=== PATIENT | male | born 1965 | race African-American/Black ===

== ENCOUNTER 2024-07-27 14:06 | Inpatient (IN) | payer MEDICARE, OTHER ==
[2024-07-27] MEDS ORDERED: Nitroglycerin 0.4 MG TAB (25 Tab Bottle) SL PRN (15:22)
[2024-07-27] MEDS ORDERED: Ipratropium/Albuterol 3 ML NEB NEB PRN (15:24)
[2024-07-27] MEDS ORDERED: Acetaminophen 650 MG/20.3 ML UDCUP PO PRN (15:24)
[2024-07-27] MEDS ORDERED: Electrolyte Replacement Protocol 1 EACH IVPB PRN (15:24)
[2024-07-27] MEDS ORDERED: Nicotine 14 MG PATCH TD PRN (15:29)
[2024-07-27 15:40] LABS: Actual Bicarbonate (HCO3a) 30.7 mEq/L (22-28); Base Excess (BEa) 0.4 mEq/L (-2.0 to +3.0); Calcium, Ionized (arterial) 1.19 mmol/L (1.12-1.30); Hematocrit-ABG 49 % (42.0-52.0); Hemoglobin (Hb) 16.8 g/dL (14.0-18.0); Potassium - ABG Lab 4.42 mmol/L (3.70-5.30); pH, Arterial 7.233 (7.35-7.45)
[2024-07-27 15:43] VITALS: BMI 44.9
[2024-07-27 15:44] LABS: CO2 Tension 74.4 mmHg (35.0-45.0); Puncture Site Right Radial artery
[2024-07-27] MEDS: Nitroglycerin 2% Ointment 1 INCH/1 GM Packet TOP SCH (15:54)
[2024-07-27 16:25] LABS: Troponin I 0.021 ng/mL (< 0.028)
[2024-07-27] MEDS: methylPREDNISolone Sod Succ 40 MG VIAL IVP SCH (17:49)
[2024-07-27] MEDS: Aspirin Chewable 81 MG TAB PO SCH (17:49)
[2024-07-27] MEDS: Ipratropium/Albuterol 3 ML NEB NEB SCH (18:15)
[2024-07-27] MEDS: Multivit, Therapeutic 1 TAB PO SCH (20:54)
[2024-07-27] MEDS: Famotidine 20 MG TAB PO SCH (20:54)
[2024-07-28] MEDS: Furosemide 40 MG (4 mL) VIAL SLOW IVP SCH ×2 (02:22→05:22)
[2024-07-28] MEDS: Furosemide 40 MG (4 mL) VIAL ONE (02:23)
[2024-07-28 04:10] LABS: #Basophils Less than 0.03 10x3/uL (0.0-0.2); #Eosinophils Less than 0.03 10x3/uL (0.0-0.7); %Lymphocytes 10.7 % (21.0-51.0); %Monocytes 4.1 % (0.0-10.0); %Neutrophils 84.7 % (42.0-75.0); Hematocrit 54.4 % (42.0-52.0); Mean Corpuscular HGB CONC 29.4 g/dL (32.0-36.0); Mean Corpuscular Hemoglobin 30.7 pg (27.0-31.0); Mean Corpuscular Volume 104.2 fL (78.0-98.0); Mean Platelet Volume 12.4 fL (7.4-10.4); Platelet Count 162 10x3/uL (130-400); RBC Distribution Width 13.6 % (11.5-14.5); Red Blood Cell (RBC) Count 5.22 mill/uL (4.70-6.10)
[2024-07-28 04:23] LABS: Hemoglobin A1c 5.7 % (4.0-6.0)
[2024-07-28 04:37] LABS: ALT (SGPT) 18 U/L (8-55); AST (SGOT) 14 U/L (5-34); Albumin 2.9 g/dL (3.4-4.8); Alkaline Phosphatase 73 U/L (40-110); Anion Gap 13 mmol/L (10-20); BUN (Urea Nitrogen) 19 mg/dL (8.4-25.7); Bilirubin, Total 0.6 mg/dL (0.2-1.2); Calc. Creatinine Clearance 109 mL/min (70-130); Calcium 8.7 mg/dL (7.8-10.44); Carbon Dioxide 32 mmol/L (23-31); Chloride 106 mmol/L (98-107); Estimated GFR 62; Globulin 4.6 g/dL (2.4-3.5); Glucose 160 mg/dL (80-115); Magnesium 2.2 mg/dL (1.6-2.6); Potassium 5.3 mmol/L (3.5-5.1); Protein, Total 7.5 g/dL (5.8-8.1); Sodium 146 mmol/L (136-145)
[2024-07-28] MEDS: Aspirin Chewable 81 MG TAB PO SCH (08:58)
[2024-07-28] MEDS: cefTRIAXone\\ROCEPHIN 2 GM in Sodium Chloride 0.9% 100 ML IVPB SCH (08:59)
[2024-07-28] MEDS: Enoxaparin 40 MG (0.4 mL) SYRINGE SC SCH (08:59)
[2024-07-28] MEDS: Azithromycin 500 MG in Sodium Chloride 0.9% 250 ML 250 ML IVPB SCH (09:01)
[2024-07-28 11:35] LABS: Actual Bicarbonate (HCO3a) 35.1 mEq/L (22-28); Base Excess (BEa) 5.2 mEq/L (-2.0 to +3.0); Calcium, Ionized (arterial) 1.19 mmol/L (1.12-1.30); Carboxyhemoglobin (COHb) 1.2 gm% (0.0-3.0); Hematocrit-ABG 48 % (42.0-52.0); Hemoglobin (Hb) 16.3 g/dL (14.0-18.0); Potassium - ABG Lab 5.05 mmol/L (3.70-5.30); pH, Arterial 7.285 (7.35-7.45)
[2024-07-28 11:37] LABS: ALV-art Gradient 243.425 mmHg (0-20); CO2 Tension 75.5 mmHg (35.0-45.0); Puncture Site Right Radial artery
[2024-07-28 14:49] LABS: Anion Gap 13 mmol/L (10-20); BUN (Urea Nitrogen) 18 mg/dL (8.4-25.7); Calc. Creatinine Clearance 115 mL/min (70-130); Calcium 8.6 mg/dL (7.8-10.44); Carbon Dioxide 36 mmol/L (23-31); Chloride 103 mmol/L (98-107); Estimated GFR 67; Glucose 126 mg/dL (80-115); Potassium 5.6 mmol/L (3.5-5.1); Sodium 146 mmol/L (136-145)
[2024-07-29] MEDS: Albumin 25% 25 GM (100 mL) BOT IVPB SCH (00:05)
[2024-07-29 05:28] LABS: #Basophils Less than 0.03 10x3/uL (0.0-0.2); #Eosinophils Less than 0.03 10x3/uL (0.0-0.7); %Lymphocytes 6.6 % (21.0-51.0); %Neutrophils 89.1 % (42.0-75.0); Hematocrit 49.1 % (42.0-52.0); Hemoglobin 14.9 g/dL (14.0-18.0); Mean Corpuscular HGB CONC 30.3 g/dL (32.0-36.0); Mean Corpuscular Hemoglobin 31.1 pg (27.0-31.0); Mean Corpuscular Volume 102.5 fL (78.0-98.0); Mean Platelet Volume 13.4 fL (7.4-10.4); Platelet Count 128 10x3/uL (130-400); RBC Distribution Width 13.3 % (11.5-14.5); Red Blood Cell (RBC) Count 4.79 mill/uL (4.70-6.10)
[2024-07-29] MEDS: Metolazone 2.5 MG TAB PO SCH (05:36)
[2024-07-29 05:48] LABS: ALT (SGPT) 14 U/L (8-55); AST (SGOT) 13 U/L (5-34); Albumin 3.1 g/dL (3.4-4.8); Alkaline Phosphatase 61 U/L (40-110); Anion Gap 14 mmol/L (10-20); BUN (Urea Nitrogen) 22 mg/dL (8.4-25.7); Bilirubin, Total 0.7 mg/dL (0.2-1.2); Calc. Creatinine Clearance 119 mL/min (70-130); Calcium 8.8 mg/dL (7.8-10.44); Carbon Dioxide 34 mmol/L (23-31); Chloride 102 mmol/L (98-107); Estimated GFR 70; Globulin 3.7 g/dL (2.4-3.5); Glucose 104 mg/dL (80-115); Potassium 5.1 mmol/L (3.5-5.1); Protein, Total 6.8 g/dL (5.8-8.1); Sodium 145 mmol/L (136-145)
[2024-07-29] MEDS ORDERED: metroNIDAZOLE 500 MG TAB PO SCH (09:00)
[2024-07-29] MEDS: Magnesium 2 GM/50 ML(in water) 2 GM in Premix 1 BAG IVPB SCH (09:05)
[2024-07-29] MEDS: FLU (Fluarix Triv) TS24-25(6MOS UP)/PF 45 MCG/0.5 ML Syringe IM ONE (09:06)
[2024-07-30 03:38] LABS: Base Excess 16.6 mEq/L (-2.0 to +3.0); Calcium, Ionized (venous) 1.12 mmol/L (1.16-1.32); Chloride (VBG) 92 mmol/L (98-106); Hematocrit-VBG 47 % (42.0-52.0); Hemoglobin (Hb) 16.1 g/dL (13.1-17.2); Potassium (VBG) 3.73 mmol/L (3.70-5.30); Sodium 144 mmol/L (133-146); pH (venous) 7.401 (7.32-7.43)
[2024-07-30 04:26] LABS: #Basophils Less than 0.03 10x3/uL (0.0-0.2); #Eosinophils Less than 0.03 10x3/uL (0.0-0.7); %Basophils 0.1 % (0.0-1.0); %Monocytes 7.1 % (0.0-10.0); %Neutrophils 71.3 % (42.0-75.0); Hemoglobin 15.3 g/dL (14.0-18.0); Mean Corpuscular HGB CONC 31.9 g/dL (32.0-36.0); Mean Corpuscular Hemoglobin 31.3 pg (27.0-31.0); Mean Corpuscular Volume 98.2 fL (78.0-98.0); Mean Platelet Volume 13.3 fL (7.4-10.4); Platelet Count 141 10x3/uL (130-400); RBC Distribution Width 13.2 % (11.5-14.5); Red Blood Cell (RBC) Count 4.89 mill/uL (4.70-6.10)
[2024-07-30 04:38] LABS: Anion Gap 14 mmol/L (10-20); BUN (Urea Nitrogen) 30 mg/dL (8.4-25.7); Calc. Creatinine Clearance 101 mL/min (70-130); Carbon Dioxide 41 mmol/L (23-31); Chloride 93 mmol/L (98-107); Estimated GFR 58; Glucose 93 mg/dL (80-115); Magnesium 2.1 mg/dL (1.6-2.6); Potassium 3.7 mmol/L (3.5-5.1); Sodium 144 mmol/L (136-145)
[2024-07-30] MEDS: methylPREDNISolone Sod Succ 40 MG VIAL IVP SCH (09:03)
[2024-07-30] MEDS: AcetaZOLAMIDE 250 MG TAB PO SCH (09:09)
[2024-07-30 16:34] LABS: Anion Gap 16 mmol/L (10-20); BUN (Urea Nitrogen) 32 mg/dL (8.4-25.7); Calc. Creatinine Clearance 108 mL/min (70-130); Calcium 9.3 mg/dL (7.8-10.44); Carbon Dioxide 36 mmol/L (23-31); Chloride 94 mmol/L (98-107); Estimated GFR 63; Glucose 133 mg/dL (80-115); Potassium 3.9 mmol/L (3.5-5.1); Sodium 142 mmol/L (136-145)
[2024-07-31 03:49] LABS: Anion Gap 14 mmol/L (10-20); BUN (Urea Nitrogen) 29 mg/dL (8.4-25.7); Calc. Creatinine Clearance 120 mL/min (70-130); Calcium 9.3 mg/dL (7.8-10.44); Carbon Dioxide 32 mmol/L (23-31); Chloride 98 mmol/L (98-107); Estimated GFR 72; Glucose 106 mg/dL (80-115); Potassium 3.6 mmol/L (3.5-5.1); Sodium 140 mmol/L (136-145)
[2024-07-31] MEDS: methylPREDNISolone Sod Succ 40 MG VIAL IVP SCH (09:03)
[2024-08-01 04:14] LABS: Actual Bicarbonate (HCO3v) 33.2 mEq/L (22-28); Base Excess 6.3 mEq/L (-2.0 to +3.0); Calcium, Ionized (venous) 1.13 mmol/L (1.16-1.32); Chloride (VBG) 97 mmol/L (98-106); Hematocrit-VBG 57 % (42.0-52.0); Hemoglobin (Hb) 19.5 g/dL (13.1-17.2); Potassium (VBG) 4.34 mmol/L (3.70-5.30); Sodium 141 mmol/L (133-146); pH (venous) 7.407 (7.32-7.43)
[2024-08-02] MEDS ORDERED: Ipratropium/Albuterol 3 ML NEB ONE (15:22)
[2024-08-02 16:29] VITALS: BMI 40.6
[2024-08-03] MEDS: methylPREDNISolone Sod Succ 40 MG VIAL IVP SCH (09:40)
[2024-08-07 05:17] LABS: Hematocrit 51.6 % (42.0-52.0); Hemoglobin 16.7 g/dL (14.0-18.0); Platelet Count 135 10x3/uL (130-400)
[2024-08-07 11:19] LABS: #Basophils 0.03 10x3/uL (0.0-0.2); %Basophils 0.6 % (0.0-1.0); %Eosinophils 1.7 % (0.0-10.0); %Lymphocytes 32.6 % (21.0-51.0); %Monocytes 17.7 % (0.0-10.0); %Neutrophils 47.2 % (42.0-75.0); Hematocrit 52.6 % (42.0-52.0); Hemoglobin 16.6 g/dL (14.0-18.0); Mean Corpuscular HGB CONC 31.6 g/dL (32.0-36.0); Mean Corpuscular Hemoglobin 29.7 pg (27.0-31.0); Mean Corpuscular Volume 94.3 fL (78.0-98.0); Platelet Count 138 10x3/uL (130-400); RBC Distribution Width 12.8 % (11.5-14.5); Red Blood Cell (RBC) Count 5.58 mill/uL (4.70-6.10)
[2024-08-07 11:28] VITALS: BP 98/66; TEMP 98.2
[2024-08-07 11:51] LABS: Anion Gap 10 mmol/L (10-20); BUN (Urea Nitrogen) 23 mg/dL (8.4-25.7); Calc. Creatinine Clearance 117 mL/min (70-130); Calcium 8.8 mg/dL (7.8-10.44); Carbon Dioxide 28 mmol/L (23-31); Chloride 108 mmol/L (98-107); Estimated GFR 78; Glucose 102 mg/dL (80-115); Magnesium 2.1 mg/dL (1.6-2.6); Potassium 4.4 mmol/L (3.5-5.1); Sodium 142 mmol/L (136-145)
[2024-08-07 12:48] LABS: Platelet Adequacy Comment Platelets Normal; Polychromasia SLIGHT = 2-3 cells HPF (0-2)
[2024-08-12 14:29] LABS: Actual Bicarbonate (HCO3v) 46.2 mEq/L (22-28)
== END 2024-08-07 19:35 | disposition home or self-care (01) | DRG 205 ==
LOC: IMCU/EMU 15:10 → T4-B 07-31 16:48
PROVIDERS: ADMIT Internal Medicine; ATTEND Internal Medicine
PROC: 5A09457 Assistance with Respiratory Ventilation, 24-96 Consecutive Hours, Continuous Positive Airway Pressure (ICD-10-PCS; principal; 2024-07-27)
PROC: 4A133R1 Monitoring of Arterial Saturation, Peripheral, Percutaneous Approach (ICD-10-PCS; 2024-07-27)
DX: E66.2 Morbid (severe) obesity with alveolar hypoventilation (principal); I50.33 Acute on chronic diastolic (congestive) heart failure; J96.21 Acute and chronic respiratory failure with hypoxia; J69.0 Pneumonitis due to inhalation of food and vomit; J96.22 Acute and chronic respiratory failure with hypercapnia; E87.0 Hyperosmolality and hypernatremia; N17.9 Acute kidney failure, unspecified; E87.20 Acidosis, unspecified; I13.0 Hypertensive heart and chronic kidney disease with heart failure and stage 1 through stage 4 chronic kidney disease, or unspecified chronic kidney disease; I27.20 Pulmonary hypertension, unspecified; E83.42 Hypomagnesemia; E87.5 Hyperkalemia; N18.2 Chronic kidney disease, stage 2 (mild); Z68.39 Body mass index [BMI] 39.0-39.9, adult; F17.290 Nicotine dependence, other tobacco product, uncomplicated; Z71.6 Tobacco abuse counseling
CPT/HCPCS: 36415; 36600; 71045; 80048; 80053; 80306; 80307; 81001; 82805; 83036; 83605; 83690; 83735; 83880; 84145; 84443; 84484; 85014; 85018; 85025; 85049; 85379; 85610; 85730; 87040; 87428; 93005; 93306; 94640; 94660; 94760; 96365; 96366; 96367; 96368; 96375; 96376; J0456; J0696; J1650; J1940; J2919; J3475; J7050; J7611; J7620; J7644; P9047